=== PATIENT | female | born 1930 | race Caucasian/White ===

== ENCOUNTER → 2016-07-04 | Outpatient (CLI) | payer MEDICARE, OTHER ==
[~2016-07-04] MED LIST: REGADENOSON 0.4 MG/5 ML DISP.SYRIN. IV ONE
== END | disposition home or self-care (01) ==
LOC: PCVCIMAG 15:21
PROVIDERS: ATTEND Internal Medicine Cardiovascular Disease
DX: I10 Essential (primary) hypertension (principal); E78.5 Hyperlipidemia, unspecified; R01.1 Cardiac murmur, unspecified; R06.00 Dyspnea, unspecified; I47.1 Supraventricular tachycardia; L40.50 Arthropathic psoriasis, unspecified
CPT/HCPCS: 93306; G0463; J2785

== ENCOUNTER → 2017-03-27 | Outpatient (CLI) | payer MEDICARE, OTHER | END | disposition home or self-care (01) | LOC: PCVCCLINIC 13:11 | PROVIDERS: ATTEND Internal Medicine Cardiovascular Disease | DX: I10 Essential (primary) hypertension (principal); E78.00 Pure hypercholesterolemia, unspecified; I47.1 Supraventricular tachycardia; N28.9 Disorder of kidney and ureter, unspecified; I35.0 Nonrheumatic aortic (valve) stenosis; R53.83 Other fatigue; R94.31 Abnormal electrocardiogram [ECG] [EKG]; Z87.891 Personal history of nicotine dependence; Z79.899 Other long term (current) drug therapy | CPT/HCPCS: 80061; 93005; G0463 ==

== ENCOUNTER → 2017-04-04 | Outpatient (CLI) | payer MEDICARE, OTHER ==
--- NOTE | 2017-04-04 17:57 | PCVCIMAG ---
APPROVED REPORT Study performed: 04/04/2017 10:40:55 EXAM: Comprehensive 2D, Doppler, and color-flow Echocardiogram Patient Location: Echo lab Status: routine BSA: 1.71 HR: 90 bpmBP: 155/87 mmHg Rhythm: NSR Other Information Study Quality: Adequate Indications Aortic Stenosis, chest pressure, PSVT, Fatigue 2D Dimensions LVEF(%): 49.95 (>50%) IVSd: 12.81 (7-11mm)LVOT Diam: 21.61 (18-24mm) LVDd: 32.49 mm PWd: 10.15 (7-11mm)Ascending Ao: 31.98 (22-36mm) LVDs: 24.52 (25-40mm) Left Atrium: 35.00 (27-40mm) Aortic Root: 29.87 mm LV Single Plane 4CH: 62.46 % LV Single Plane 2CH: 67.39 %Singer's LVEF: 64.93 % Biplane EF: 64.5 % Volumes Left Atrial Volume (Systole) Single Plane 4CH: 33.29 mLSingle Plane 2CH: 44.88 mL LA ESV Index: 28.00 mL/m2 Aortic Valve AoV Peak Irwin.: 2.95 m/s AO Peak Gr.: 34.85 mmHgLVOT Max P.85 mmHg AO Mean Gr.: 18.92 mmHgLVOT Mean P.98 mmHg AO V2 Mean: 2.05 m/sLVOT Max V: 0.98 m/s AO V2 VTI: 63.35 cm JUAN (VTI): 1.19 [id number] V1 VTI: 20.51 cm JUAN Vmax: 1.22 cm2 Mitral Valve MV Peak Gr.: 14.29 mmHg MV Mean Gr.: 4.12 mmHgE/A Ratio: 0.5 MV Decel. Time: 225.29 ms MV E Max Irwin.: 0.71 m/s MV A Irwin.: 1.44 m/s MV Max Irwin.: 1.89 m/s MV VTI: 305.48 mm MVA VTI: 246.11 mm2 MV PHT: 65.33 ms MVA (PHT): 2.34 cm2 IVRT: 113.03 ms Pulmonary Valve PV Peak Irwin.: 1.12 m/sPV Peak Gr.: 5.06 mmHg Pulmonary Vein P Vein S: 0.26 m/sP Vein A: 0.61 m/s P Vein D: 0.28 m/sP Vein A Dur.: 128.0 msec P Vein S/D Ratio: 0.93 Tricuspid Valve TR Peak Irwin.: 2.63 m/s TR Peak Gr.: 27.76 mmHg Left Ventricle The left ventricle is normal size. There is normal LV segmental wall motion. Mild concentric left ventricular hypertrophy. Left ventricular systolic function is normal. The left ventricular ejection fraction is within the normal range. LVEF is 60-65%. Grade I - abnormal relaxation pattern. Right Ventricle The right ventricle is normal size. The right ventricular systolic function is normal. Atria The left atrium size is normal. Aneurysmal atrial septal motion without PFO. The right atrium size is normal. Aortic Valve The aortic valve is normal in structure. Trivial aortic regurgitation is present. There is no aortic valvular stenosis. Mitral Valve Mitral annular calcification is moderate. The mitral valve leaflets are calcified. Trace mitral regurgitation. Minimal mitral stenosis with moderately sclerotic leaflets. Calculated mitral valve area is 2.3 cm2 with maximum pressure gradient of 14.3 mmHg and mean pressure gradient of 4.1 mmHg. Tricuspid Valve The tricuspid valve is normal in structure. Mild tricuspid regurgitation with PAP of 35 mmHg. Pulmonic Valve The pulmonary valve is normal in structure. There is no pulmonic valvular regurgitation. Great Vessels The aortic root is normal in size. IVC is normal in size and collapses with >50% inspiration Pericardium There is no pericardial effusion. <Conclusion> The left ventricle is normal size. Mild concentric left ventricular hypertrophy. LVEF is 60-65%. Grade I - abnormal relaxation pattern. The right ventricular systolic function is normal. The right atrium size is normal. There is no aortic valvular stenosis. Trace mitral regurgitation. Mitral annular calcification is moderate. The mitral valve leaflets are calcified. Minimal mitral stenosis with moderately sclerotic leaflets. Calculated mitral valve area is 2.3 cm2 with maximum pressure gradient of 14.3 mmHg and mean pressure gradient of 4.1 mmHg. Mild tricuspid regurgitation with PAP of 35 mmHg. There is no pericardial effusion.
== END | disposition home or self-care (01) ==
LOC: PCVCIMAG 10:32
PROVIDERS: ATTEND Internal Medicine Cardiovascular Disease
DX: I08.3 Combined rheumatic disorders of mitral, aortic and tricuspid valves (principal); R07.89 Other chest pain; R53.83 Other fatigue; I47.1 Supraventricular tachycardia; I10 Essential (primary) hypertension
CPT/HCPCS: 93306

== ENCOUNTER → 2017-10-08 | Outpatient (CLI) | payer MEDICARE, OTHER | END | disposition home or self-care (01) | LOC: PCVCCLINIC 13:58 | DX: I35.0 Nonrheumatic aortic (valve) stenosis (principal); E78.00 Pure hypercholesterolemia, unspecified; I10 Essential (primary) hypertension; R01.1 Cardiac murmur, unspecified; R94.31 Abnormal electrocardiogram [ECG] [EKG]; Z88.8 Allergy status to other drugs, medicaments and biological substances; Z87.891 Personal history of nicotine dependence | CPT/HCPCS: 80061; 93005; G0463 ==

== ENCOUNTER → 2018-02-27 | Outpatient (CLI) | payer MEDICARE, OTHER | END | disposition home or self-care (01) | LOC: PCVCCLINIC 14:13 | PROVIDERS: ATTEND Internal Medicine Cardiovascular Disease | DX: I35.0 Nonrheumatic aortic (valve) stenosis (principal); L40.50 Arthropathic psoriasis, unspecified; K52.9 Noninfective gastroenteritis and colitis, unspecified; B02.9 Zoster without complications; I12.9 Hypertensive chronic kidney disease with stage 1 through stage 4 chronic kidney disease, or unspecified chronic kidney disease; N18.3 Chronic kidney disease, stage 3 (moderate); E78.5 Hyperlipidemia, unspecified; M81.0 Age-related osteoporosis without current pathological fracture; R94.31 Abnormal electrocardiogram [ECG] [EKG]; Z79.899 Other long term (current) drug therapy; Z98.890 Other specified postprocedural states | CPT/HCPCS: 93005; G0463 ==

== ENCOUNTER → 2018-03-27 | Outpatient (CLI) | payer MEDICARE, OTHER ==
--- NOTE | 2018-03-27 16:36 | PCVCIMAG ---
APPROVED REPORT Study performed: 03/27/2018 13:18:54 EXAM: Comprehensive 2D, Doppler, and color-flow Echocardiogram Patient Location: Echo lab Status: routine BSA: 1.62 HR: 68 bpmBP: 142/84 mmHg Rhythm: NSR Other Information Study Quality: Adequate Risk Factors: Cardiac Risk Factors: HTN Indications Murmur aortic stenosis 2D Dimensions IVSd: 13.11 (7-11mm)LVOT Diam: 21.59 (18-24mm) LVDd: 33.14 mm PWd: 11.82 (7-11mm)Ascending Ao: 32.23 (22-36mm) LVDs: 22.07 (25-40mm) Left Atrium: 38.46 (27-40mm) Aortic Root: 28.18 mm LV Single Plane 4CH: 66.63 % LV Single Plane 2CH: 63.89 % Biplane EF: 65.6 % Volumes Left Atrial Volume (Systole) Single Plane 4CH: 42.35 mLSingle Plane 2CH: 49.96 mL LA ESV Index: 32.00 mL/m2 Aortic Valve AoV Peak Irwin.: 3.35 m/s AO Peak Gr.: 45.01 mmHgLVOT Max P.57 mmHg AO Mean Gr.: 23.11 mmHgLVOT Mean P.85 mmHg AO V2 Mean: 2.34 m/sLVOT Max V: 1.07 m/s AO V2 VTI: 79.62 cmLVOT Mean V: 0.81 m/s JUAN (VTI): 1.26 [id number] V1 VTI: 27.35 cm JUAN Vmax: 1.17 cm2 SV (LVOT): 100.11 mL Mitral Valve MV Peak Gr.: 13.11 mmHg MV Mean Gr.: 3.94 mmHgE/A Ratio: 0.6 MV Decel. Time: 344.10 ms MV E Max Irwin.: 1.01 m/s MV A Irwin.: 1.66 m/s MV Max Irwin.: 1.81 m/s MV Mean Irwin.: 0.89 m/s MV VTI: 400.19 mm MVA VTI: 250.14 mm2 MV PHT: 120.52 ms MVA (PHT): 1.83 cm2 IVRT: 103.81 ms Pulmonary Valve PV Peak Irwin.: 0.98 m/sPV Peak Gr.: 3.86 mmHg Pulmonary Vein P Vein S: 0.20 m/sP Vein A: 0.38 m/s P Vein D: 0.28 m/sP Vein A Dur.: 124.6 msec P Vein S/D Ratio: 0.71 Tricuspid Valve TR Peak Irwin.: 2.91 m/s TR Peak Gr.: 33.93 mmHg TV Vmax: 0.39 m/s Left Ventricle The left ventricle is normal size. There is normal LV segmental wall motion. Mild concentric left ventricular hypertrophy. Left ventricular systolic function is normal. The left ventricular ejection fraction is within the normal range. LVEF is 60-65%. Grade I - abnormal relaxation pattern. Right Ventricle The right ventricle is normal size. The right ventricular systolic function is normal. Atria Left atrium is at the upper limits of normal. Right atrium is at the upper limits of normal. Aortic Valve The aortic valve is moderately to severely sclerotic. No aortic regurgitation is present. There is moderate valvular aortic stenosis. Calculated aortic valve area is 1.2 cm2 with maximum pressure gradient of 45 mmHg and mean pressure gradient of 23 mmHg. Mitral Valve Moderate posterior mitral annular calcification. There is no mitral valve regurgitation noted. Mild mitral stenosis. Calculated mitral valve area is 1.8 cm2 with maximum pressure gradient of 13 mmHg and mean pressure gradient of 4 mmHg. Tricuspid Valve The tricuspid valve is normal in structure. Mild to moderate tricuspid regurgitation with PAP of 41 mmHg. Pulmonic Valve The pulmonary valve is normal in structure. There is no pulmonic valvular regurgitation. Great Vessels The aortic root is normal in size. IVC is normal in size and collapses >50% with inspiration. Pericardium There is no pericardial effusion. There is no pleural effusion. <Conclusion> The left ventricle is normal size. Mild concentric left ventricular hypertrophy. LVEF is 60-65%. Grade I - abnormal relaxation pattern. The right ventricle is normal size. Left atrium is at the upper limits of normal. The aortic valve is moderately to severely sclerotic. There is moderate valvular aortic stenosis. Calculated aortic valve area is 1.2 cm2 with maximum pressure gradient of 45 mmHg and mean pressure gradient of 23 mmHg. Moderate posterior mitral annular calcification. There is no mitral valve regurgitation noted. Mild to moderate tricuspid regurgitation with PAP of 41 mmHg. The aortic root is normal in size. There is no pericardial effusion.
== END | disposition home or self-care (01) ==
LOC: PCVCIMAG 13:14
PROVIDERS: ATTEND Internal Medicine Cardiovascular Disease
DX: I08.2 Rheumatic disorders of both aortic and tricuspid valves (principal); E78.00 Pure hypercholesterolemia, unspecified; R01.1 Cardiac murmur, unspecified; M54.9 Dorsalgia, unspecified; I12.9 Hypertensive chronic kidney disease with stage 1 through stage 4 chronic kidney disease, or unspecified chronic kidney disease; N18.3 Chronic kidney disease, stage 3 (moderate); E78.5 Hyperlipidemia, unspecified; M81.0 Age-related osteoporosis without current pathological fracture
CPT/HCPCS: 36415; 80061; 93005; 93306; G0463

== ENCOUNTER → 2018-09-30 | Outpatient (CLI) | payer MEDICARE, OTHER | END | disposition home or self-care (01) | LOC: PCVCCLINIC 14:30 | PROVIDERS: ATTEND Internal Medicine Cardiovascular Disease | DX: I35.0 Nonrheumatic aortic (valve) stenosis (principal); E78.00 Pure hypercholesterolemia, unspecified; R01.1 Cardiac murmur, unspecified; I12.9 Hypertensive chronic kidney disease with stage 1 through stage 4 chronic kidney disease, or unspecified chronic kidney disease; N18.3 Chronic kidney disease, stage 3 (moderate); K21.9 Gastro-esophageal reflux disease without esophagitis; E78.5 Hyperlipidemia, unspecified | CPT/HCPCS: 36415; 80061; 93005; G0463 ==